=== PATIENT | female | born 1975 | race Caucasian/White ===

== ENCOUNTER 2016-09-18 10:36 | Emergency (ER) | payer OTHER ==
[~2016-09-18 10:36] MED LIST: ALLEGRA-D 24 H1 EACH PO; CILOXAN 5 ML5 M1 OP; CIPRO500 MG PO; CIPRODEX 0.3%-7.5 ML OT; CLARITIN10 M1 PO; CLARITIN10 MG PO; CLINDAMYCIN150 MG PO; CORTISPORIN 1%-10 M1 OT; DIFLUCAN100 MG PO; ESKALITH300 MG PO; FANAPT4 MG PO; HYDROCODONE BIT1 T11 PO; KLONOPIN0.5 MG PO; KLONOPIN1 MG PO; LATUDA20 MG PO; LIDEX0.05% T; LISINOPRIL20 MG PO; LOSARTAN POTASS1 TA2 PO; MEDROL DOSEPAK4 MG PO; MOTRIN600 MG PO; MOTRIN800 MG PO; MUCINEX DM 60 M1 TER PO; NAPROSYN500 MG PO; NORCO 325 MG-51 TAB PO; NYSTAT-RX1 POW; PHENERGAN W/DM120 ML PO; PREDNICOT10 MG PO; PREDNICOT20 MG PO; PREDNISONE20 M1 PO; PRINIVIL2.5 MG PO; PRISTIQ50 MG PO; Phenergan25 MG PO; REXULTI1 MG PO; ROBITUSSIN AC 110 ML PO; TESSALON PERLE100 M1 PO; ULTRAM50 MG PO; VIBRAMYCIN100 MG PO; VITAMIN D-32000 UNI1 PO; VITAMIN D50000 I2 PO; VITAMIN D50000 I3 PO; ZITHROMAX Z PA250 MG PO; ZITHROMAX250 MG PO
[2016-09-18] MEDS ORDERED: ZITHROMAX250 MG PO (12:08)
== END 2016-09-18 12:13 | disposition home or self-care (01) ==
LOC: ED 10:36
DX: H65.02 Acute serous otitis media, left ear (principal); F17.200 Nicotine dependence, unspecified, uncomplicated; Z88.0 Allergy status to penicillin; Z88.1 Allergy status to other antibiotic agents; Z88.8 Allergy status to other drugs, medicaments and biological substances

== ENCOUNTER 2018-11-27 16:33 | Emergency (ER) | payer OTHER ==
[~2018-11-27] VITALS: Ht 165.1 cm; Wt 120.2 kg
[2018-11-27] MEDS ORDERED: LOSARTAN-HCTZ1 EAC2 PO (18:51)
== END 2018-11-27 21:46 | disposition home or self-care (01) ==
LOC: ED 16:33
DX: I10 Essential (primary) hypertension (principal); F17.200 Nicotine dependence, unspecified, uncomplicated; Z90.710 Acquired absence of both cervix and uterus; Z98.890 Other specified postprocedural states; Z98.51 Tubal ligation status; Z79.899 Other long term (current) drug therapy; Z88.0 Allergy status to penicillin; Z88.1 Allergy status to other antibiotic agents; Z88.8 Allergy status to other drugs, medicaments and biological substances

== ENCOUNTER 2019-03-06 13:09 | Emergency (ER) | payer OTHER ==
[~2019-03-06] VITALS: Ht 165.1 cm; Wt 111.1 kg
[~2019-03-06 13:09] MED LIST changes: +LOSARTAN-HCTZ1 EAC2 PO
[2019-03-06] MEDS ORDERED: VIBRAMYCIN100 MG PO (13:37)
== END 2019-03-06 13:49 | disposition home or self-care (01) ==
LOC: ED 13:09
DX: L02.415 Cutaneous abscess of right lower limb (principal); Z79.899 Other long term (current) drug therapy; Z88.0 Allergy status to penicillin; Z88.1 Allergy status to other antibiotic agents; Z88.8 Allergy status to other drugs, medicaments and biological substances

== ENCOUNTER → 2020-11-24 | Outpatient (CLI) | payer OTHER | END | disposition home or self-care (01) | LOC: LAB 14:41 | PROVIDERS: ATTEND Nurse Practitioner Family | DX: F31.9 Bipolar disorder, unspecified (principal) ==

== ENCOUNTER → 2020-11-30 | Outpatient (CLI) | payer OTHER | END | disposition home or self-care (01) | LOC: LAB 11:59 | PROVIDERS: ATTEND Nurse Practitioner Family | DX: F31.9 Bipolar disorder, unspecified (principal) ==

== ENCOUNTER → 2021-03-18 | Outpatient (CLI) | payer OTHER | END | disposition home or self-care (01) | LOC: RAD 15:13 | PROVIDERS: ATTEND Internal Medicine | DX: M17.0 Bilateral primary osteoarthritis of knee (principal) ==

== ENCOUNTER → 2023-03-08 | Outpatient (CLI) | payer OTHER ==
[~2023-03-08] MED LIST changes: +PROPRANOLOL HCL10 MG PO
[2023-03-08 17:31] LABS: BASO # 0.1 10*3/uL (0.0-0.1); BASO % 0.7 % (0.0-1.0); EOS # 0.9 10*3/uL (0.0-0.4); EOS % 5.3 % (1.0-4.0); HEMATOCRIT 47.3 % (37.0-47.0); LYMPH # 4.3 10*3/uL (1.3-4.4); LYMPH % 24.4 % (27.0-41.0); MEAN CELL VOLUME 91.1 fl (81.0-99.0); MEAN CORPUSCULAR HGB 30.4 pg (27.0-31.0); MEAN CORPUSCULAR HGB CONC 33.4 g/dl (33.0-37.0); MONO # 0.8 10*3/uL (0.1-1.0); MONO % 4.6 % (3.0-9.0); NEUT # 11.5 10*3/uL (2.3-7.9); NEUT % 64.7 % (47.0-73.0); PLATELET COUNT AUTOMATED 377 10*3/uL (130-400); RED BLOOD COUNT 5.19 10*6/uL (4.10-5.10); RED CELL DISTRI WIDTH 13.3 % (0-14.5); WHITE BLOOD COUNT 17.7 10*3/uL (4.8-10.8)
[2023-03-08 17:55] LABS: ALKALINE PHOSPHATASE 60 U/L (46-116); BUN 15 mg/dl (9-23); CHLORIDE 107 mmol/L (98-107); POTASSIUM 4.2 mmol/L (3.4-5.1); TOTAL PROTEIN 6.9 gm/dL (6.0-8.0)
[2023-03-08 17:56] LABS: SGPT/ALT < 7 U/L (10-49)
== END | disposition home or self-care (01) ==
LOC: LAB 17:16
PROVIDERS: ATTEND Nurse Practitioner Family
DX: R10.9 Unspecified abdominal pain (principal)

== ENCOUNTER 2023-03-13 18:23 | Emergency (ER) | payer OTHER ==
[~2023-03-13] VITALS: Ht 165.1 cm; Wt 111.6 kg
[~2023-03-13 18:23] MED LIST changes: -PROPRANOLOL HCL10 MG PO
[2023-03-13] MEDS ORDERED: PROPRANOLOL HCL10 MG PO (18:37)
[2023-03-13 19:17] LABS: BASO # 0.1 10*3/uL (0.0-0.1); BASO % 0.8 % (0.0-1.0); EOS % 6.2 % (1.0-4.0); HEMATOCRIT 44.6 % (37.0-47.0); LYMPH # 4.5 10*3/uL (1.3-4.4); MEAN CELL VOLUME 91.2 fl (81.0-99.0); MEAN CORPUSCULAR HGB 30.7 pg (27.0-31.0); MEAN CORPUSCULAR HGB CONC 33.6 g/dl (33.0-37.0); MONO # 0.8 10*3/uL (0.1-1.0); MONO % 4.9 % (3.0-9.0); NEUT # 9.7 10*3/uL (2.3-7.9); NEUT % 59.7 % (47.0-73.0); PLATELET COUNT AUTOMATED 385 10*3/uL (130-400); RED BLOOD COUNT 4.89 10*6/uL (4.10-5.10); RED CELL DISTRI WIDTH 13.2 % (0-14.5); WHITE BLOOD COUNT 16.2 10*3/uL (4.8-10.8)
[2023-03-13 19:32] LABS: BILIRUBIN Negative (Negative); BLOOD Negative (Negative); CLARITY Clear (Clear); COLOR Yellow (Yellow); GLUCOSE Negative (Negative); KETONE Negative (Negative); LEUKO ESTERASE Negative (Negative); NITRITE Negative (Negative); PH 6.5 (4.5-8.0)
[2023-03-13 19:41] LABS: ALKALINE PHOSPHATASE 68 U/L (46-116); BUN 11 mg/dl (9-23); CHLORIDE 106 mmol/L (98-107); LIPASE 31 U/L (12-53); POTASSIUM 4.2 mmol/L (3.4-5.1); TOTAL PROTEIN 6.2 gm/dL (6.0-8.0)
[2023-03-13 19:41] LABS: RBC 0-2 rbc/hpf (0-2)
[2023-03-13 19:42] LABS: SGPT/ALT < 7 U/L (10-49)
[2023-03-13 19:42] LABS: MUCOUS 1+
[2023-03-13] MEDS ORDERED: CIPRO500 MG PO (21:32)
== END 2023-03-13 22:22 | disposition home or self-care (01) ==
LOC: ED 18:23
PROVIDERS: Nurse Practitioner Family
DX: R19.7 Diarrhea, unspecified (principal); K62.5 Hemorrhage of anus and rectum; R10.32 Left lower quadrant pain; Z90.711 Acquired absence of uterus with remaining cervical stump; Z88.0 Allergy status to penicillin; Z88.1 Allergy status to other antibiotic agents; Z88.8 Allergy status to other drugs, medicaments and biological substances; Z79.2 Long term (current) use of antibiotics; Z79.899 Other long term (current) drug therapy

== ENCOUNTER → 2023-03-19 | Outpatient (CLI) | payer OTHER ==
[~2023-03-19] MED LIST changes: +PROPRANOLOL HCL10 MG PO
[2023-03-19 18:16] LABS: BASO # 0.1 10*3/uL (0.0-0.1); BASO % 0.9 % (0.0-1.0); EOS # 1.1 10*3/uL (0.0-0.4); EOS % 7.4 % (1.0-4.0); HEMATOCRIT 46.1 % (37.0-47.0); LYMPH # 4.8 10*3/uL (1.3-4.4); LYMPH % 31.4 % (27.0-41.0); MEAN CELL VOLUME 91.1 fl (81.0-99.0); MEAN CORPUSCULAR HGB 29.8 pg (27.0-31.0); MEAN CORPUSCULAR HGB CONC 32.8 g/dl (33.0-37.0); MEAN PLATELET VOLUME 8.9 fl (9.6-12.3); MONO # 0.5 10*3/uL (0.1-1.0); MONO % 3.5 % (3.0-9.0); NEUT # 8.6 10*3/uL (2.3-7.9); NEUT % 56.3 % (47.0-73.0); PLATELET COUNT AUTOMATED 398 10*3/uL (130-400); RED BLOOD COUNT 5.06 10*6/uL (4.10-5.10); RED CELL DISTRI WIDTH 13.2 % (0-14.5); WHITE BLOOD COUNT 15.3 10*3/uL (4.8-10.8)
[2023-03-20 14:08] LABS: t-TRANSGLUTAMINASE (tTG) IGA <2 U/mL (0-3); t-TRANSGLUTAMINASE (tTG) IgG <2 U/mL (0-5)
== END | disposition home or self-care (01) ==
LOC: LAB 17:42
PROVIDERS: ATTEND Nurse Practitioner Family
DX: R19.7 Diarrhea, unspecified (principal)

== ENCOUNTER → 2023-03-20 | Outpatient (CLI) | payer OTHER | END | disposition home or self-care (01) | LOC: RAD 17:33 | PROVIDERS: ATTEND Nurse Practitioner Family | DX: R10.84 Generalized abdominal pain (principal); R19.4 Change in bowel habit ==

== ENCOUNTER → 2023-06-30 | Outpatient (CLI) | payer OTHER | LOC: US 05-26 10:00 | PROVIDERS: ATTEND Nurse Practitioner Family | DX: R10.9 Unspecified abdominal pain (principal); R11.0 Nausea ==